=== PATIENT | female | born 1930 | race Asian ===

== ENCOUNTER 2018-03-16 19:23 | Emergency (ER) | payer OTHER ==
[~2018-03-16] VITALS: Ht 147.3 cm; Wt 47.6 kg
[2018-03-16 19:26] VITALS: BP_SYST 152
[2018-03-16] MEDS ORDERED: ACETAMINOPHEN/CODEINE 300 MG-30 MG TABLET PO ONE (20:00)
[2018-03-16 21:05] VITALS: BP_SYST 145
== END 2018-03-16 21:05 | disposition home or self-care (01) ==
LOC: SED 19:23
DX: S42.291A Other displaced fracture of upper end of right humerus, initial encounter for closed fracture (principal); S42.351A Displaced comminuted fracture of shaft of humerus, right arm, initial encounter for closed fracture; W19.XXXA Unspecified fall, initial encounter; Y93.89 Activity, other specified; Y92.89 Other specified places as the place of occurrence of the external cause; Y99.2 Volunteer activity
CPT/HCPCS: 73060-TC; 99284

== ENCOUNTER 2018-03-30 10:17 | Emergency (ER) | payer OTHER ==
[~2018-03-30] VITALS: Ht 144.8 cm; Wt 38.1 kg
[2018-03-30 10:18] VITALS: BP_SYST 166
[2018-03-30 12:30] VITALS: BP_SYST 144
== END 2018-03-30 12:30 | disposition home or self-care (01) ==
LOC: SED 10:17
DX: S22.069A Unspecified fracture of T7-T8 vertebra, initial encounter for closed fracture (principal); W19.XXXA Unspecified fall, initial encounter; Y93.89 Activity, other specified; Y92.238 Other place in hospital as the place of occurrence of the external cause; Y99.8 Other external cause status
CPT/HCPCS: 72072-TC; 99284

== ENCOUNTER 2018-09-30 04:13 | Emergency (ER) | payer OTHER ==
[~2018-09-30] VITALS: Ht 142.2 cm; Wt 38.1 kg
[2018-09-30 04:23] VITALS: BP_SYST 167
--- NOTE | 2018-09-30 04:23 | NUR ---
Patient to ER bed 8 to gown for evaluation. Side rails up. Report given to RAMOS Kearns.
--- NOTE | 2018-09-30 04:40 | NUR ---
Pt came into the ED complaining of L hand pain after falling about a week ago. Pt is able to move fingers with no problem. Cap refill is brisk < 3 seconds. No n/v/d or fever. No other complaints/injuries noted. Will cont. to monitor.
--- NOTE | 2018-09-30 04:57 | NUR ---
ER at bedside examining patient.
--- NOTE | 2018-09-30 05:20 | NUR ---
Radiology at bedside performing xray.
[2018-09-30 05:39] VITALS: BP_SYST 167
--- NOTE | 2018-09-30 05:39 | NUR ---
Patient given written and verbal discharge instructions and verbalizes understanding. ER MD Dr. Riggs discussed with patient the results and treatment provided. Patient in stable condition. ID arm band removed. Rx of Motrin given. Patient educated on pain management and to follow up with PMD within 2-3 days. Pain Scale 0/10. Opportunity for questions provided and answered. Medication side effect fact sheet provided.
== END 2018-09-30 05:39 | disposition home or self-care (01) ==
LOC: SED 04:13
DX: S63.92XA Sprain of unspecified part of left wrist and hand, initial encounter (principal); W19.XXXA Unspecified fall, initial encounter; Y93.89 Activity, other specified; Y92.89 Other specified places as the place of occurrence of the external cause; Y99.8 Other external cause status
CPT/HCPCS: 99283